=== PATIENT | female | born 1975 | race Caucasian/White ===

== ENCOUNTER → 2020-01-21 09:32 | Outpatient (CLI) | payer OTHER, SELFPAY ==
--- NOTE | 2020-01-21 09:40 | RAD_ITS ---
STUDY: X-RAY - RIGHT HAND REASON FOR EXAM: Female, 44 years old. Wrist pain x1 week TECHNIQUE: 3 view(s) of the hand. COMPARISON: None. FINDINGS: Normal radiocarpal articulation. Normal distal radioulnar joint. Normal visualized carpal bones. Normal carpal articulations Normal carpometacarpal articulation of the thumb. Normal second through fifth carpometacarpal joints. Normal metacarpi. Normal metacarpophalangeal joint of the thumb. Normal interphalangeal joint of the thumb. Normal proximal and distal phalanges of the thumb. Normal metacarpophalangeal joints of the second through fifth fingers. Normal proximal and distal interphalangeal joints of the second through fifth fingers. Normal phalanges of the second through fifth fingers. The soft tissue structures are unremarkable. RAD/Hand Min 3 Views IMPRESSION: Normal x-ray examination of the hand. Electronically Signed: Cyrus Briceno MD at 16:59 EDT , Service support ,
== END ==
PROVIDERS: PCP Family Medicine; Referring Provider Family Medicine; Visit Provider Family Medicine
DX: M25.531 Pain in right wrist (principal)
CPT/HCPCS: 73130

== ENCOUNTER 2020-04-24 20:36 | Emergency (ER) | payer OTHER, SELFPAY ==
[2020-04-24 20:37] VITALS: BP 113/72; PULSE 84; RESP 16; TEMP 36.7; O2SAT 98; BMI 16.9
[2020-04-24 20:51] LABS: Bacteria 0 SEEN /hpf (None Seen); Mucous, Urine 0 SEEN /hpf (<or=2+); Red Blood Cells-Urine 0 SEEN /hpf (0-5); White Blood Cells 0 SEEN /hpf (0-5)
[2020-04-24 20:59] LABS: Color, Urine Yellow (Yellow); Glucose, Dipstick Normal (Normal); Ketone-Dipstick Negative (Negative); Leukocyte Esterase-Dipstick Negative /ul (Negative); Nitrite-Dipstick Negative (Negative); Occult Blood-Urine Negative /ul (Negative); Protein-Dipstick Negative (Negative); Specific Gravity, Urine 1.005 (1.002-1.030); Urine Bilirubin Dipstick Negative (Negative); Urine Clarity Sl. Cloudy (Clear); Urine Urobilinogen Normal (Normal); Urine pH 6.5 (5.0 - 8.0)
[2020-04-24 21:06] LABS: Squamous Epithelial Cells - UA 0-5 SEEN /hpf (5-10)
--- NOTE | 2020-04-24 22:05 | CT_ITS ---
HISTORY: BILATERAL FLANK PAIN,NAUSEA AND DARK URINEHX:KIDNEY STONES,LUCIUS/BSO,CHOLECYSTECTOMY EXAMINATION: CT Abdomen And Pelvis W/O Contrast Injection TECHNIQUE: Helically acquired images were obtained of the abdomen and pelvis without oral or IV contrast as per renal stone protocol. A radiation dose optimization technique was used for this scan. IV Contrast dosage and agent: None Oral contrast: None. COMPARISON: 11/05/2015 FINDINGS: Lower thorax: Clear. No pleural effusion or pericardial effusion. Cholecystectomy with surgical clips within the gallbladder fossa. No biliary dilatation. Limited non-infusion exam. Allowing for this, normal liver, spleen, and pancreas. Both kidneys show normal size and position. No renal or ureteral calculi. Right renal minor pelviectasis, unchanged. No hydroureter and no inga hydronephrosis. The adrenal glands are not enlarged. Abdominal aorta is normal in caliber. No ascites or retroperitoneal lymph enlargement. GI tract: No obstruction. Normal appendix. Pelvis: Surgical absence of the uterus. No free fluid or lymph node enlargement. Normal urinary bladder. Bones: No acute osseous abnormality. Ventral abdominal wall: Umbilical jewelry ring. CT/Abdomen/Pelvis without Cont IMPRESSION: 1. No urolithiasis, obstructive uropathy, or acute abdominal disease identified. 2. No significant change. Individualized dose optimization techniques were used for this CT. at 2334 Reported and signed by: Augusto Vaughn MD Electronically Signed: Augusto Vaughn, at 23:33 EDT Tel , Service support ,
--- NOTE | 2020-04-24 22:06 | ED.DCSUM_ITS ---
History of Present Illness Chief Complaint: Flank Pain Informant: Patient Onset: Days Context: Gradual Onset Current Severity: Mild Maximum Severity: Moderate Narrative: Patient present secondary to flank pain and nausea. She states she started noticing some back pain a couple days ago. She had her back adjusted but pain persisted. She is felt very nauseated. She does not have dysuria or frequency. She did have diarrhea a few days ago. She is had some chills but no fever. She denies history of frequent UTIs or kidney stones. - Past Medical History (1) Anxiety disorder Status: Chronic Past Medical History - Allergies and Home Meds Allergies/Adverse Reactions: Allergies celery [Celery] Allergy (Verified 04/24/20 20:39) Swelling tramadol Allergy (Verified 04/24/20 20:39) Shortness of breath Primary Care Physician: Alpesh Pina MD [Primary Care Provider] - Surgical History: hysterectomy, tonsillectomy, - - Lasik, breast implants Smoking Status: Current every day smoker Review of Systems General: Reports: Chills. Denies: Fever Eyes: Denies: Visual changes - bilaterally ENT: Denies: Bilateral ear pain Cardiovascular: Denies: Chest pain Respiratory: Denies: Dyspnea, Cough Gastrointestinal: Reports: Nausea. Denies: Abdominal pain, Vomiting Genitourinary: Denies: Dysuria, Frequency Musculoskeletal: Reports: Back pain Skin: Denies: Rash Neurological: Denies: Headache Hematologic: Denies: Easy bruising, Easy bleeding Allergy: Denies: Uticaria Physical Exam Vital Signs/Narrative: Vital Signs Temp Pulse Resp BP Pulse Ox 04/24/20 20:37 98.0 F 84 16 113/72 98 Inital Vital Signs reviewed: Yes General: Well nourished, Well developed Head: Normocephalic ENT: Moist mucous membranes Neck: Supple Cardiovascular: Regular rate, Regular rhythm Respiratory: No distress, CTA bilaterally Abdomen: Soft, Nontender, Hypoactive bowel sounds Back: CVA tenderness - Old CVA tenderness bilaterally. Extremities: Nontender Skin: Normal color, No rash Neurological: Alert, Oriented x3 Psychological: Normal affect Diagnostic/Tx/Re-eval Impressions Abdomen/Pelvis CT 04/24/20 22:05 IMPRESSION: 1. No urolithiasis, obstructive uropathy, or acute abdominal disease identified. 2. No significant change. Individualized dose optimization techniques were used for this CT. at 2334 Reported and signed by: Augusto Vaughn MD Electronically Signed: Augusto Vaughn, at 23:33 EDT Tel , Service support , 04/24/20 22:05 Abdomen/Pelvis without Cont [CT] Stat Laboratory Results 04/24/20 04/24/20 04/24/20 20:41 22:25 22:25 WBC 11.5 H RBC 3.45 L Hgb 12.4 Hct 36.6 L MCV 106.1 H MCH 35.9 H MCHC 33.9 RDW Std Deviation 46.4 H RDW Coeff of Albert 11.8 Plt Count 226 MPV 10.3 Immature Gran % (Auto) 0.300 Neut % (Auto) 73.5 H Lymph % (Auto) 16.9 L [place] % (Auto) 6.7 Eos % (Auto) 2.3 Baso % (Auto) 0.3 Absolute Neuts (auto) 8.4 H Absolute Lymphs (auto) 1.94 Nucleated RBC % 0 Sodium 142 Potassium 4.1 Chloride 108 H Carbon Dioxide 30.0 Anion Gap 4 L BUN 12 Creatinine 0.85 Estim Creat Clear Calc 64.83 Est GFR (MDRD) Af Amer 94 Est GFR (MDRD) Non-Af 78 BUN/Creatinine Ratio 14.2 Glucose 86 Calcium 8.7 Urine Color Yellow Urine Clarity Sl. Cloudy Urine pH 6.5 Ur Specific [place] 1.005 Urine Protein Negative Urine Glucose (UA) Normal Urine Ketones Negative Urine Occult Blood Negative Urine Nitrite Negative Urine Bilirubin Negative Urine Urobilinogen Normal Ur Leukocyte Esterase Negative Urine RBC 0 SEEN Urine WBC 0 SEEN Ur Squamous Epith Cells 0-5 SEEN Urine Bacteria 0 SEEN Urine Mucus 0 SEEN - Medical Decision Making Patient was given Toradol, Zofran, and a small dose of morphine. On repeat evaluation patient states she does still feel somewhat achy. Test results are discussed with her. With her recent diarrhea etc. she may have viral syndrome with some body aches. At this time she is reassured that she does not have kidney stone or urinary infection. ED Disposition - Plan for ED Patient: Disposition: Home or Assisted Living Diagnosis: Viral syndrome Instructions: ED Viral Syndrome Prescriptions: cycloBENZAPRine HCl [Flexeril] 10 mg PO TID PRN #20 tab PRN Reason: Muscle Spasm Transmission Status: Pending to [facility] Ketorolac [Toradol] 10 mg PO Q6H PRN #14 tab PRN Reason: Pain Score 4-10/10 Transmission Status: Pending to [facility] Ondansetron [Zofran Odt] 4 mg PO Q8H PRN PRN #10 tab PRN Reason: Nausea Transmission Status: Pending to [facility] Referrals: Alpesh Pina MD [Primary Care Provider] - 1 Week if not improving
[2020-04-24] MEDS: Ketorolac 30 MG/ML Syringe IV (22:19)
[2020-04-24] MEDS: Ondansetron 4 MG/2 ML Vial IV (22:20)
[2020-04-24] MEDS: Morphine 2 MG/ML Syringe IV (22:20)
[2020-04-24 22:47] LABS: Anion Gap 4 (5-15); BUN 12 mg/dL (7-18); BUN/Creat Ratio 14.2 RATIO (10-20); Calcium,Total 8.7 mg/dL (8.5-10.1); Chloride 108 mmol/L (98-107); Creatinine, Serum 0.85 mg/dL (0.55-1.02); EST Glomerular Filtration Rate 78 mL/min (>60); Est Glom Filt Rate - Afr Amer 94 mL/min (>60); Estimated Creatinine Clearance 64.83 ml/min; Glucose 86 mg/dL (74-106); Potassium 4.1 mmol/L (3.5-5.1); Sodium Level 142 mmol/L (136-145)
[2020-04-24 22:52] LABS: Absolute Lymphocyte Count 1.94 X10^3/uL (0.83-4.51); Absolute Neutrophil Count 8.4 X10^3/uL (2.0-7.7); Basophil# 0.04 X10^3/uL; Basophil% 0.3 % (0-1); Eosinophil# 0.26 X10^3/uL; Eosinophils% 2.3 % (0-5); Hematocrit 36.6 % (37-47); Hemoglobin 12.4 g/dL (12.0-15.0); Lymphocyte # 1.94 X10^3/ul (4.0); Lymphocyte % 16.9 % (19-41); Mean Corp Hgb Conc 33.9 g/dL (32-36); Mean Corpuscular Hgb 35.9 pg (27.0-32.0); Mean Corpuscular Volume 106.1 fL (81-99); Mean Platelet Vol. 10.3 fl (6.2-12.0); Monocyte# 0.77 X10^3/uL; Monocyte% 6.7 % (0-10); NRBC Flagged by Analyzer 0 % (0-5); Neutrophil # 8.43 X10^3/uL (2.7-7.7); Neutrophil % 73.5 % (47-70); Platelet Count 226 K/mm3 (150-450); RBC Distribution Width CV 11.8 % (11.6-14.6); RBC Distribution Width SD 46.4 fl (35.1-43.9); Red Blood Count 3.45 M/mm3 (4.2-5.4); White Blood Count 11.5 K/mm3 (4.4-11.0)
[2020-04-24 23:47] VITALS: BP 128/78; PULSE 61; O2SAT 98
== END 2020-04-25 | disposition home or self-care (01) ==
PROVIDERS: Emergency Provider Emergency Medicine; PCP Family Medicine
DX: B34.9 Viral infection, unspecified (principal); R11.0 Nausea; R19.7 Diarrhea, unspecified; M54.9 Dorsalgia, unspecified; R68.83 Chills (without fever); F41.9 Anxiety disorder, unspecified; Z79.899 Other long term (current) drug therapy; F17.200 Nicotine dependence, unspecified, uncomplicated
CPT/HCPCS: 74176; 80048; 81001; 85025; 96361; 96374; 96375; 99283; J7030; J2405